=== PATIENT | male | born 1930 | race Caucasian/White ===

== ENCOUNTER 2017-11-23 21:31 | Emergency (ER) | payer OTHER ==
[~2017-11-23] VITALS: Ht 175.3 cm; Wt 75.2 kg
[~2017-11-23 21:31] MED LIST: ASPITAB; ENAL5TAB98; LEVO50TA51; PRED1%O; SIMV20; TIMO0.5S4; ZITH250T PO
[2017-11-23 21:33] VITALS: BP 155/76; PULSE 91; RESP 20; TEMP 97.4; O2SAT 98
--- NOTE | 2017-11-23 22:07 | PD ---
HPI Chief Complaint: Complaint Time Seen by Provider: 21:46 Travel History International Travel<30 days: No Contact w/Intl Traveler<30days: No Traveled to known affect area: No History of Present Illness HPI Patient is an 87-year-old male presents emergency department for evaluation of left flank pain. Patient states it started immediately following dinner tonight about 2 hours ago. Patient states it felt similar to a kidney stone he had in his 20s. He also has been having some minimal dysuria, mild nausea without vomiting. Denies any injuries, denies any chest pain shortness of breath diarrhea constipation blood in the stool melena stool. He states the pain is intermittent, moderate, left flank, associated signs symptoms as above. PFSH Past Medical History High Cholesterol: Yes Diminished Hearing: No Glaucoma: Yes Hypertension: Yes Thyroid Disease: Yes Past Surgical History Cholecystectomy: Yes (1956) Social History Alcohol Use: Yes ("RARELY") Tobacco Use: No Substance Use: No Allergies-Medications (Allergen,Severity, Reaction): Coded Allergies: No Known Allergies (Verified Adverse Reaction, Unknown, 11/23/17) Reported Meds & Prescriptions Reported Meds & Active Scripts Active Acyclovir 800 Mg Tab 800 Mg PO 5 TIMES A DAY 7 Days TAKE ONLY IF YOU START HAVING A RASH. Prednisone 20 Mg Tab 60 Mg PO DAILY 5 Days TAKE ONLY IF YOU START HAVING A RASH. Ultram (Tramadol HCl) 50 Mg Tab 50 Mg PO Q6H PRN Reported Timolol Opth Drops 0.5 % Soln 1 Drop LEFT EYE BID Blephamide Opth Drops (Prednisolone/Sulfacetamide) 10-0.2 % Susp 2 Drop RIGHT EYE Q4H Simvastatin 20 Mg Tab 20 Mg PO HS Vasotec (Enalapril Maleate) 5 Mg Tab 5 Mg PO DAILY Levothyroxine (Levothyroxine Sodium) 50 Mcg Tab 50 Mcg PO DAILY Aspirin 81 Mg Chew 162 Mg CHEW DAILY Review of Systems Except as stated in HPI: all other systems reviewed are Neg Physical Exam Narrative GENERAL: Well-developed well-nourished no obvious distress SKIN: Focused skin assessment warm/dry. No rash no wound to left flank, no tenderness to light touch. HEAD: Atraumatic. Normocephalic. EYES: Pupils equal and round. No scleral icterus. No injection or drainage. ENT: No nasal bleeding or discharge. Mucous membranes pink and moist. NECK: Trachea midline. No JVD. CARDIOVASCULAR: Regular rate and rhythm. No murmur appreciated. RESPIRATORY: No accessory muscle use. Clear to auscultation. Breath sounds equal bilaterally. GASTROINTESTINAL: Abdomen soft, non-tender, nondistended. Hepatic and splenic margins not palpable. CVA tenderness deferred as the patient has tenderness to palpation of the inferior most rib cage in the left. Abdomen otherwise benign. MUSCULOSKELETAL: No obvious deformities. No clubbing. No cyanosis. No edema. NEUROLOGICAL: Awake and alert. No obvious cranial nerve deficits. Motor grossly within normal limits. Normal speech. PSYCHIATRIC: Appropriate mood and affect; insight and judgment normal. Data Data Last Documented VS Vital Signs Date Time Temp Pulse Resp B/P (MAP) Pulse Ox O2 Delivery O2 Flow Rate FiO2 11/24/17 00:15 97.6 82 15 152/74 (100) 99 Orders Orders Complete Blood Count With Diff (11/23/17 22:04) Comprehensive Metabolic Panel (11/23/17 22:04) Lipase (11/23/17 22:04) Urinalysis - C+S If Indicated (11/23/17 22:04) Iv Access Insert/Monitor (11/23/17 22:04) Ecg Monitoring (11/23/17 22:04) Oximetry (11/23/17 22:04) Sodium Chloride 0.9% Flush (Ns Flush) (11/23/17 22:15) Electrocardiogram (11/23/17 22:04) Ketorolac Inj (Toradol Inj) (11/23/17 22:15) Ondansetron Inj (Zofran Inj) (11/23/17 22:15) Ct Abd/Pel W Iv Contrast(Rout) (11/23/17 ) Iohexol 350 Inj (Omnipaque 350 Inj) (11/23/17 23:34) Ed Discharge Order (11/24/17 00:06) Labs Laboratory Tests Test 11/23/17 22:10 11/23/17 22:22 White Blood Count 7.7 TH/MM3 Red Blood Count 4.64 MIL/MM3 Hemoglobin 14.9 GM/DL Hematocrit 44.8 % Mean Corpuscular Volume 96.5 FL Mean Corpuscular Hemoglobin 32.1 PG Mean Corpuscular Hemoglobin Concent 33.3 % Red Cell Distribution Width 12.5 % Platelet Count 202 TH/MM3 Mean Platelet Volume 9.1 FL Neutrophils (%) (Auto) 66.4 % Lymphocytes (%) (Auto) 18.7 % Monocytes (%) (Auto) 10.9 % Eosinophils (%) (Auto) 3.0 % Basophils (%) (Auto) 1.0 % Neutrophils # (Auto) 5.2 TH/MM3 Lymphocytes # (Auto) 1.4 TH/MM3 Monocytes # (Auto) 0.8 TH/MM3 Eosinophils # (Auto) 0.2 TH/MM3 Basophils # (Auto) 0.1 TH/MM3 CBC Comment DIFF FINAL Differential Comment Blood Urea Nitrogen 15 MG/DL Creatinine 1.10 MG/DL Random Glucose 138 MG/DL Total Protein 7.3 GM/DL Albumin 3.4 GM/DL Calcium Level 8.5 MG/DL Alkaline Phosphatase 81 U/L Aspartate Amino Transf (AST/SGOT) 26 U/L Alanine Aminotransferase (ALT/SGPT) 21 U/L Total Bilirubin 0.6 MG/DL Sodium Level 136 MEQ/L Potassium Level 4.8 MEQ/L Chloride Level 102 MEQ/L Carbon Dioxide Level 26.5 MEQ/L Anion Gap 8 MEQ/L Estimat Glomerular Filtration Rate 63 ML/MIN Lipase 89 U/L Urine Color YELLOW Urine Turbidity SLIGHT Urine pH 5.5 Urine Specific [place] 1.019 Urine Protein NEG mg/dL Urine Glucose (UA) NEG mg/dL Urine Ketones NEG mg/dL Urine Occult Blood NEG Urine Nitrite NEG Urine Bilirubin NEG Urine Leukocyte Esterase TRACE Urine RBC 0-3 /hpf Urine WBC 3-5 /hpf Urine Squamous Epithelial Cells 0-5 /hpf Urine Hyaline Casts 3-5 /lpf Urine Mucus MOD /lpf Microscopic Urinalysis Comment CULT NOT INDICATED MDM Medical Decision Making Medical Screen Exam Complete: Yes Emergency Medical Condition: Yes Differential Diagnosis shingles prodrome, kidney stone, abdominal abscess, chest wall pain. Narrative Course Patient roomed emergency department, he appears well and much younger than stated age. Patient does not have tenderness to light palpation but tenderness to palpation of the ribs and soft tissue. No deep tenderness is felt no masses on abdominal exam. Given his age and his symptoms CAT scan is indicated which shows no abnormality. Last 24 hours Impressions Abdomen/Pelvis CT 11/23/17 0000 Signed Impressions: Service Date/Time: Thursday, November 23, 2017 23:18 - CONCLUSION: No acute disease. Valdez Arreola Jr., MD Discussed with the patient that he appears well and his symptoms could be from musculoskeletal pain. On further review of systems the patient states that he did have coughing congestion which she recently finished steroids and antibiotics for and his symptoms resolved a few days ago. Is possible that he strained a muscle while he was suffering from his upper respiratory symptoms and cough. Does all possible that he is having a shingles prodrome. I discussed symptomatic management with the patient need for follow-up with his primary care physician and return to ED criteria. He is stable for discharge. Diagnosis Primary Impression: Abdominal wall pain Additional Impression: Abdominal wall pain in left flank Med/Other Pt SpecificInfo: Prescription(s) given Scripts Acyclovir (Acyclovir) 800 Mg Tab 800 MG PO 5 TIMES A DAY for Mgmt Viral Infection for 7 Days, TAB 0 Refills TAKE ONLY IF YOU START HAVING A RASH. Prov: Kennedy Hough MD 11/24/17 Prednisone (Prednisone) 20 Mg Tab 60 MG PO DAILY for 5 Days, #15 TAB 0 Refills TAKE ONLY IF YOU START HAVING A RASH. Prov: Kennedy Hough MD 11/24/17 Tramadol (Ultram) 50 Mg Tab 50 MG PO Q6H Y for PAIN, #10 TAB 0 Refills Prov: Kennedy Hough MD 11/24/17 Disposition: 01 DISCHARGE HOME Condition: Stable Kennedy Hough MD Nov 23, 2017 22:07
[2017-11-23] MEDS ORDERED: ASPI-516 CHEW (22:10)
[2017-11-23] MEDS ORDERED: SULF10SU3 RIGHT EYE (22:10)
[2017-11-23] MEDS ORDERED: TIMO0.5S30 LEFT EYE (22:10)
[2017-11-23] MEDS ORDERED: ENAL5TAB98 PO (22:10)
[2017-11-23] MEDS ORDERED: SIMV20TA PO (22:10)
[2017-11-23] MEDS ORDERED: LEVO50TA4 PO (22:10)
[2017-11-23] MEDS ORDERED: ONDANSETRON HCL 4 MG/2 ML VIAL IV PUSH ONE (22:15)
[2017-11-23] MEDS ORDERED: SODIUM CHLORIDE 0.9% FLUSH 10 ML FLUSH IV FLUSH PRN (22:15)
[2017-11-23] MEDS ORDERED: KETOROLAC TROMETHAMINE 30 MG/ML (IVP) VIAL IV PUSH ONE (22:15)
[2017-11-23 22:34] LABS: AUTOMATED NEUTROPHIL # 5.2 TH/MM3 (1.8-7.7); BASOPHIL # 0.1 TH/MM3 (0-0.2); EOSINOPHIL # 0.2 TH/MM3 (0-0.4); HEMATOCRIT 44.8 % (39.0-51.0); HEMOGLOBIN 14.9 GM/DL (13.0-17.0); LYMPH % 18.7 % (9.0-44.0); LYMPHOCYTE # 1.4 TH/MM3 (1.0-4.8); MEAN CELL VOLUME 96.5 FL (80.0-100.0); MEAN CORPUSCULAR HEMOGLOBIN 32.1 PG (27.0-34.0); MEAN CORPUSCULAR HGB CONC 33.3 % (32.0-36.0); MEAN PLATELET VOLUME 9.1 FL (7.0-11.0); MONO % 10.9 % (0.0-8.0); MONOCYTE # 0.8 TH/MM3 (0-0.9); NEUT % 66.4 % (16.0-70.0); PLATELET COUNT 202 TH/MM3 (150-450); RED BLOOD COUNT 4.64 MIL/MM3 (4.50-5.90); RED CELL DISTRIBUTION WIDTH 12.5 % (11.6-17.2); WHITE BLOOD COUNT 7.7 TH/MM3 (4.0-11.0)
[2017-11-23 22:35] LABS: BILIRUBIN, URINE NEG (NEG); BLOOD, URINE NEG (NEG); GLUCOSE,URINE NEG (NEG); KETONE, URINE NEG (NEG); NITRITE,URINE NEG (NEG); PH, URINE 5.5 (5.0-8.5); URINE LEUKOCYTE ESTERASE TRACE (NEG)
[2017-11-23 22:45] LABS: URINE COLOR YELLOW (YELLW/STRAW)
[2017-11-23 22:46] LABS: MUCUS URINE MOD /lpf (OCC); SQUAMOUS EPITHELIAL CELL URINE 0-5 /hpf (0-5)
[2017-11-23 22:47] LABS: RBC, URINE 0-3 /hpf (0-3)
[2017-11-23 22:47] LABS: CHLORIDE 102 MEQ/L (98-107); SODIUM (NA) 136 MEQ/L (136-145)
[2017-11-23 22:51] LABS: ALBUMIN 3.4 GM/DL (3.4-5.0); BICARBONATE 26.5 MEQ/L (21.0-32.0); CALCIUM 8.5 MG/DL (8.5-10.1); GLUCOSE,RANDOM 138 MG/DL (74-106); LIPASE 89 U/L (73-393)
[2017-11-23 22:52] LABS: BLOOD UREA NITROGEN 15 MG/DL (7-18)
[2017-11-23 22:54] LABS: ALT (GPT) 21 U/L (12-78); AST (GOT) 26 U/L (15-37); GLOMERULAR FILTRATION RATE 63 ML/MIN (>89)
[2017-11-23 22:56] LABS: TOTAL BILIRUBIN ADULT 0.6 MG/DL (0.2-1.0); TOTAL PROTEIN 7.3 GM/DL (6.4-8.2)
[2017-11-23 22:57] LABS: ALKALINE PHOSPHATASE 81 U/L (45-117)
[2017-11-23] MEDS ORDERED: IOHEXOL 350 MG/ML 10 ML VIAL (for RAD DIAG) IVCONTRAST ONE (23:34)
--- NOTE | 2017-11-23 23:50 | RADRPT ---
EXAM DATE/TIME: 11/23/2017 23:18 [facility] COMPARISON: No previous studies available for comparison. INDICATIONS : Left flank pain. IV CONTRAST: 75 cc Omnipaque 350 (iohexol) IV ORAL CONTRAST: No oral contrast ingested. RADIATION DOSE: 12.49 CTDIvol (mGy) MEDICAL HISTORY : Hypertension. SURGICAL HISTORY : Cholecystectomy. ENCOUNTER: Initial ACUITY: 1 day PAIN SCALE: 8/10 LOCATION: Left flank TECHNIQUE: Volumetric scanning of the abdomen and pelvis was performed. Using automated exposure control and ad justment of the mA and/or kV according to patient size, radiation dose was kept as low as reasonably achievable to obtain optimal diagnostic quality images. DICOM format image data is available electro nically for review and comparison. FINDINGS: LOWER LUNGS: Rounded atelectasis within the right middle lobe. LIVER: Homogeneous density without lesion. There is no dilation of the biliary tree. Gallbladder surgically absent. SPLEEN: Normal size without lesion. PANCREAS: Within normal limits. KIDNEYS: Normal in size and shape. There is no mass, stone or hydronephrosis. A 1.5 cm cyst is seen exophytic in the lower pole the left kidney. Scattered areas of cortical scarring involving both kidneys. ADRENAL GLANDS: Within normal limits. VASCULAR: There is no aortic aneurysm. BOWEL/MESENTERY: The stomach, small bowel, and colon demonstrate no acute abnormality. There is no free intraperitone al air or fluid. ABDOMINAL WALL: Within normal limits. RETROPERITONEUM: There is no lymphadenopathy. BLADDER: No wall thickening or mass. REPRODUCTIVE: Within normal limits. INGUINAL: There is no lymphadenopathy or hernia. MUSCULOSKELETAL: Within normal limits for patient age. CONCLUSION: No acute disease. Valdez Arreola Jr., MD on November 23, 2017 at 23:46 Board Certified Radiologist. This report was verified electronically.
[2017-11-24] MEDS ORDERED: ACYC800T PO (00:05)
[2017-11-24] MEDS ORDERED: TRAM50 PO (00:05)
[2017-11-24] MEDS ORDERED: PRED20 PO (00:05)
[2017-11-24 00:15] VITALS: BP 152/74; TEMP 97.6
--- NOTE | 2017-11-24 10:07 | EKG ---
Date Performed: 11/23/2017 Time Performed: 22:25:43 PTAGE: 87 years EKG: Sinus rhythm NONSPECIFIC T-WAVE ABNORMALITY BORDERLINE ECG PREVIOUS TRACING : 08/15/2012 19.02 DOCTOR: Magnus Romero Interpretating Date/Time 11/24/2017 10:06:56
== END 2017-11-24 00:30 | disposition home or self-care (01) ==
LOC: PHED 21:31
DX: R10.9 Unspecified abdominal pain (principal); I10 Essential (primary) hypertension; E78.00 Pure hypercholesterolemia, unspecified; R94.31 Abnormal electrocardiogram [ECG] [EKG]; H40.9 Unspecified glaucoma; Z90.49 Acquired absence of other specified parts of digestive tract; Z79.82 Long term (current) use of aspirin; Z79.899 Other long term (current) drug therapy
CPT/HCPCS: 74177; 80053; 81001; 83690; 85025; 93005; 96374; 96375; 99285; J1885; J2405; Q9967